=== PATIENT | male | born 1985 | race Caucasian/White ===

== ENCOUNTER 2019-03-03 15:19 | Emergency (ER) | payer OTHER | END 2019-03-04 01:13 | disposition home or self-care (01) | LOC: FTE 03-04 01:13 | DX: S02.32XA Fracture of orbital floor, left side, initial encounter for closed fracture (principal); H49.02 Third [oculomotor] nerve palsy, left eye; Y04.2XXA Assault by strike against or bumped into by another person, initial encounter | CPT/HCPCS: 70480; 99284-25 ==

== ENCOUNTER 2019-07-01 15:28 | Emergency (ER) | payer OTHER ==
[2019-07-01] MEDS: HYDROCODONE/APAP (5/325) TAB PO (16:02)
[2019-07-01] MEDS: CYCLOBENZAPRINE 10 MG TAB PO (16:02)
== END 2019-07-01 18:01 | disposition left against medical advice (07) ==
LOC: FTE 15:28
DX: M54.2 Cervicalgia (principal); F17.210 Nicotine dependence, cigarettes, uncomplicated
CPT/HCPCS: 72040; 99283-25